=== PATIENT | female | born 1965 | race African-American/Black ===

== ENCOUNTER 2017-05-24 12:39 | Inpatient (IN) | payer MEDICAID, OTHER ==
[~2017-05-24] VITALS: Ht 162.6 cm; Wt 100.0 kg
[2017-05-24 12:58] LABS: GLUCOSE,POINT OF CARE 99 MG/DL (70-110)
[2017-05-24] MEDS ORDERED: SODIUM CHLORIDE 0.9% 1,000 ML IV ONE (13:15)
[2017-05-24] MEDS ORDERED: ASPIRIN 325 MG TABLET PO ONE (13:15)
[2017-05-24 13:18] LABS: BASOPHILS # (AUTO) 0.07 K/uL (0.00-0.20); BASOPHILS % (AUTO) 0.6 % (0.0-2.0); EOSINOPHILS # (AUTO) 0.13 K/uL (0.00-0.70); EOSINOPHILS % (AUTO) 0.98 % (1.0-6.0); HEMATOCRIT 38.1 % (36-46); HEMOGLOBIN 12.4 g/dL (12.0-16.0); LYMPHOCYTES % (AUTO) 36.6 % (22.0-44.0); MEAN CORPUSCULAR HEMOGLOBIN 30.8 pg (26.0-34.0); MEAN CORPUSCULAR HGB CONC 32.6 G/dL (31.0-37.0); MEAN CORPUSCULAR VOLUME 94 fL (80-100); MONOCYTES # (AUTO) 0.9 K/uL (0.1-1.0); MONOCYTES % (AUTO) 6.5 % (2.0-9.0); NEUTROPHILS # (AUTO) 7.5 K/uL (1.8-7.7); NEUTROPHILS % (AUTO) 55.4 % (40.0-70.0); PLATELET COUNT (AUTO) 242 K/uL (150-450); RED BLOOD CELL COUNT(AUTO) 4.04 MIL/uL (4.00-5.20); RED CELL DISTRIBUTION WIDTH 15.2 % (11.5-14.5); WHITE BLOOD COUNT (AUTO) 13.5 K/uL (4.5-11.0)
[2017-05-24] MEDS ORDERED: TRAZ-144 PO (13:21)
[2017-05-24] MEDS ORDERED: OLAN7.5T2 PO (13:21)
[2017-05-24] MEDS ORDERED: TIMO.5OS OU (13:21)
[2017-05-24] MEDS ORDERED: FAMO20 PO (13:21)
[2017-05-24] MEDS ORDERED: BUDE10.22 IH (13:21)
[2017-05-24] MEDS ORDERED: GLIP5 PO (13:21)
[2017-05-24] MEDS ORDERED: LORA10TA7 PO (13:21)
[2017-05-24] MEDS ORDERED: BRIM15OS OU (13:21)
[2017-05-24] MEDS ORDERED: MONT10TA21 PO (13:21)
[2017-05-24] MEDS ORDERED: DICL75TA5 PO (13:21)
[2017-05-24] MEDS ORDERED: ATOR20TA86 PO (13:21)
[2017-05-24] MEDS ORDERED: BUPR75 PO (13:21)
[2017-05-24] MEDS ORDERED: ATEN50TA PO (13:21)
[2017-05-24] MEDS ORDERED: ALBU8HFA4 IH (13:21)
[2017-05-24] MEDS ORDERED: LISI-662 PO (13:21)
[2017-05-24] MEDS ORDERED: BUPR1FIL SL (13:21)
[2017-05-24] MEDS ORDERED: FLUT44HFA IH (13:21)
[2017-05-24 13:28] LABS: ANION GAP 12 mmol/L (8-16); CALCIUM, TOTAL 9.1 mg/dL (8.8-10.5); CARBON DIOXIDE 27 mmol/L (22-29); CHLORIDE 98 mmol/L (98-107); CREATININE 6.88 mg/dL (0.60-1.30); GLOMERULAR FILTR. RATE CALC 8 mL/min (>60); POTASSIUM 4.2 mmol/L (3.5-5.1); SODIUM SERUM 137 mmol/L (136-145); UREA NITROGEN, BLOOD 24 mg/dL (7-18)
[2017-05-24 13:30] LABS: PROTHROMBIN TIME 10.8 SEC (9.4-11.6)
[2017-05-24 13:44] LABS: B-TYPE NATRIURETIC PEPTIDE < 5 pg/mL (0-100)
[2017-05-24 13:53] LABS: ALANINE AMINOTRANSFERASE 45 U/L (12-78); ALBUMIN 3.7 g/dL (3.4-5.0); ASPARTATE AMINOTRANSFERASE 30 U/L (15-37); BILIRUBIN,TOTAL 0.3 mg/dL (0.1-1.0); CREATINE KINASE MB 0.8 ng/mL (0-5); CREATINE KINASE, TOTAL 327 U/L (26-192); TOTAL PROTEIN, SERUM 7.8 g/dL (6.4-8.2)
[2017-05-24] MEDS ORDERED: 0.9% SODIUM CHLORIDE 10 ML SYRINGE IVP PRN (14:30)
[2017-05-24] MEDS ORDERED: ONDANSETRON HCL 4 MG/2 ML VIAL IVP PRN (14:30)
[2017-05-24] MEDS ORDERED: ALBUTEROL SULFATE 2.5 MG/0.5 ML NEB SOLUTION NEB PRN (15:45)
[2017-05-24] MEDS ORDERED: ACETAMINOPHEN 325 MG TABLET PO PRN (15:45)
[2017-05-24] MEDS ORDERED: BISACODYL 10 MG RECTAL RECTAL SUPPOSITORY PR PRN (15:45)
[2017-05-24] MEDS ORDERED: PNEUMOCOCCAL VACCINE POLYVALENT 0.5 ML VIAL [PPSV23] IM ONE (16:00)
[2017-05-24 16:03] VITALS: BP 93/45
[2017-05-24] MEDS ORDERED: INFLUENZA VIRUS VACCINE QVS 2017-18 (3YR+)/PF 60 MCG/0.5 ML SYRINGE IM ONE (16:30)
[2017-05-24] MEDS: SODIUM CHLORIDE 0.9% 1,000 ML IV SCH (17:33)
[2017-05-24] MEDS: ACETAMINOPHEN 325 MG TABLET PO PRN (18:23)
[2017-05-24] MEDS: DOCUSATE SODIUM 100 MG CAPSULE PO SCH (20:32)
[2017-05-24 20:42] VITALS: BP 93/43
[2017-05-24] MEDS ORDERED: HEPARIN SODIUM,PORCINE 5,000 UNITS/ML VIAL SQ SCH (21:00)
[2017-05-24 23:23] LABS: ADD UA MICROSCOPIC YES; APPEARANCE,URINE CLOUDY (CLEAR); GLUCOSE, URINE (UA) NEGATIVE (NEGATIVE); KETONES,URINE NEGATIVE (NEGATIVE); LEUKOCYTE ESTERASE ,URINE NEGATIVE (NEGATIVE); OCCULT BLOOD,URINE SMALL (NEGATIVE); PROTEIN,URINE TRACE (NEGATIVE)
[2017-05-24 23:25] LABS: SQUAMOUS EPITHELIAL CELL,UR Few /LPF (None Seen)
[2017-05-24 23:28] LABS: RBC,URINE 0-2 /HPF (0-2); WBC,URINE 0-2 /HPF (0-5)
[2017-05-25] VITALS (7 sets, daily range): BP systolic 94–116; BP diastolic 41–59
[2017-05-25] MEDS: SODIUM CHLORIDE 0.9% 1,000 ML IV SCH ×2 (06:40→18:45)
[2017-05-25 06:51] LABS: BASOPHILS # (AUTO) 0.07 K/uL (0.00-0.20); BASOPHILS % (AUTO) 0.6 % (0.0-2.0); EOSINOPHILS # (AUTO) 0.14 K/uL (0.00-0.70); HEMOGLOBIN 11.1 g/dL (12.0-16.0); LYMPHOCYTES # (AUTO) 4.1 K/uL (1.0-4.8); LYMPHOCYTES % (AUTO) 34.3 % (22.0-44.0); MEAN CORPUSCULAR HEMOGLOBIN 30.5 pg (26.0-34.0); MEAN CORPUSCULAR HGB CONC 32.5 G/dL (31.0-37.0); MEAN CORPUSCULAR VOLUME 94 fL (80-100); MONOCYTES # (AUTO) 1.1 K/uL (0.1-1.0); MONOCYTES % (AUTO) 9.3 % (2.0-9.0); NEUTROPHILS # (AUTO) 6.5 K/uL (1.8-7.7); NEUTROPHILS % (AUTO) 54.6 % (40.0-70.0); RED BLOOD CELL COUNT(AUTO) 3.63 MIL/uL (4.00-5.20); RED CELL DISTRIBUTION WIDTH 14.7 % (11.5-14.5); WHITE BLOOD COUNT (AUTO) 11.8 K/uL (4.5-11.0)
[2017-05-25 07:14] LABS: BILIRUBIN,TOTAL 0.1 mg/dL (0.1-1.0); CALCIUM, TOTAL 8.2 mg/dL (8.8-10.5); CREATININE 5.42 mg/dL (0.60-1.30); POTASSIUM 4.2 mmol/L (3.5-5.1); TOTAL PROTEIN, SERUM 6.6 g/dL (6.4-8.2)
[2017-05-25 07:24] LABS: PLATELET COUNT (AUTO) 195 K/uL (150-450)
[2017-05-25] MEDS ORDERED: ENOXAPARIN SODIUM 40 MG/0.4 ML PF SYRINGE SQ SCH (09:00)
[2017-05-25] MEDS: DOCUSATE SODIUM 100 MG CAPSULE PO SCH ×2 (09:20→20:10)
[2017-05-25] MEDS: PANTOPRAZOLE SODIUM 40 MG DR TABLET PO SCH (09:20)
[2017-05-25] MEDS ORDERED: INSULIN ASPART 100 UNITS/ML SQ PRN (10:45)
[2017-05-25] MEDS ORDERED: DEXTROSE 50%-WATER 25 GM/50 ML SYRINGE IVP PRN (10:45)
[2017-05-25] MEDS: ACETAMINOPHEN 325 MG TABLET PO PRN (12:50)
[2017-05-25] MEDS: NICOTINE 21 MG/24 HOUR PATCH TD SCH (12:51)
[2017-05-25 19:38] LABS: GLUCOSE,POINT OF CARE 107 MG/DL (70-110)
[2017-05-25 19:38] LABS: GLUCOSE COMMENT 1 Received Meds; GLUCOSE,POINT OF CARE 190 MG/DL (70-110)
[2017-05-26 00:57] LABS: INFLUENZA TYPE B NEGATIVE FOR TYPE B (NEGATIVE)
[2017-05-26 04:45] VITALS: BP 103/72
[2017-05-26 06:07] LABS: BASOPHILS # (AUTO) 0.08 K/uL (0.00-0.20); EOSINOPHILS # (AUTO) 0.09 K/uL (0.00-0.70); EOSINOPHILS % (AUTO) 1.12 % (1.0-6.0); HEMATOCRIT 35.5 % (36-46); HEMOGLOBIN 11.7 g/dL (12.0-16.0); LYMPHOCYTES # (AUTO) 3.1 K/uL (1.0-4.8); LYMPHOCYTES % (AUTO) 37.1 % (22.0-44.0); MEAN CORPUSCULAR HEMOGLOBIN 30.8 pg (26.0-34.0); MEAN CORPUSCULAR VOLUME 93 fL (80-100); MONOCYTES # (AUTO) 0.9 K/uL (0.1-1.0); MONOCYTES % (AUTO) 10.2 % (2.0-9.0); NEUTROPHILS # (AUTO) 4.3 K/uL (1.8-7.7); NEUTROPHILS % (AUTO) 50.6 % (40.0-70.0); PLATELET COUNT (AUTO) 173 K/uL (150-450); RED CELL DISTRIBUTION WIDTH 14.7 % (11.5-14.5); WHITE BLOOD COUNT (AUTO) 8.5 K/uL (4.5-11.0)
[2017-05-26 06:19] LABS: CREATININE 1.6 mg/dL (0.60-1.30); POTASSIUM 4.6 mmol/L (3.5-5.1)
[2017-05-26 07:47] VITALS: BP 96/46
[2017-05-26 08:17] LABS: GLUCOSE,POINT OF CARE 99 MG/DL (70-110)
[2017-05-26 08:17] LABS: GLUCOSE,POINT OF CARE 133 MG/DL (70-110)
[2017-05-26] MEDS: PANTOPRAZOLE SODIUM 40 MG DR TABLET PO SCH (08:19)
[2017-05-26] MEDS: NICOTINE 21 MG/24 HOUR PATCH TD SCH (08:20)
[2017-05-26] MEDS: DOCUSATE SODIUM 100 MG CAPSULE PO SCH (08:20)
[2017-05-26 11:13] VITALS: BP 121/51
[2017-05-26 14:21] LABS: GLUCOSE,POINT OF CARE 124 MG/DL (70-110)
[2017-05-26 16:41] LABS: CREATININE, URINE (mALB) 139.6 mg/dL (Not Estab.)
[2017-05-28 13:07] LABS: MYOGLOBIN URINE <2 ng/mL (0-13)
== END 2017-05-26 13:00 | disposition home or self-care (01) | DRG 469 ==
LOC: EMS 12:42 → 5S 14:48
PROVIDERS: ADMIT Internal Medicine; ATTEND Internal Medicine
PROC: 3E0234Z Introduction of Serum, Toxoid and Vaccine into Muscle, Percutaneous Approach (ICD-10-PCS; principal; 2017-05-25)
DX: N17.9 Acute kidney failure, unspecified (principal); I24.8 Other forms of acute ischemic heart disease; E11.22 Type 2 diabetes mellitus with diabetic chronic kidney disease; I95.9 Hypotension, unspecified; F14.20 Cocaine dependence, uncomplicated; E66.01 Morbid (severe) obesity due to excess calories; J44.9 Chronic obstructive pulmonary disease, unspecified; F17.210 Nicotine dependence, cigarettes, uncomplicated; N18.9 Chronic kidney disease, unspecified; I12.9 Hypertensive chronic kidney disease with stage 1 through stage 4 chronic kidney disease, or unspecified chronic kidney disease; M19.90 Unspecified osteoarthritis, unspecified site; M06.9 Rheumatoid arthritis, unspecified; F19.10 Other psychoactive substance abuse, uncomplicated; F99 Mental disorder, not otherwise specified; R29.6 Repeated falls; T39.395A Adverse effect of other nonsteroidal anti-inflammatory drugs [NSAID], initial encounter; Z68.37 Body mass index [BMI] 37.0-37.9, adult; Z86.718 Personal history of other venous thrombosis and embolism; Z87.81 Personal history of (healed) traumatic fracture; Z91.81 History of falling; Z71.51 Drug abuse counseling and surveillance of drug abuser; Z82.49 Family history of ischemic heart disease and other diseases of the circulatory system; Z83.3 Family history of diabetes mellitus; Z23 Encounter for immunization; Z84.1 Family history of disorders of kidney and ureter; X58.XXXA Exposure to other specified factors, initial encounter; Y93.89 Activity, other specified; Y92.89 Other specified places as the place of occurrence of the external cause; Y99.8 Other external cause status
CPT/HCPCS: 76770; 80307; 82043; 82570; 82962; 83874; 84156; 84300; 87086; 87804; 90471; 93005; 93306; 99285; J1650; J7030

== ENCOUNTER 2022-12-04 06:24 | Day surgery (SDC) | payer OTHER ==
[~2022-12-04] VITALS: Ht 162.6 cm; Wt 60.9 kg
[~2022-12-04 06:24] MED LIST: HYDR200T4 PO
[2022-12-04] MEDS ORDERED: LIDOCAINE 4% 50 ML SOLUTION TP ONE (06:25)
[2022-12-04] MEDS ORDERED: LIDOCAINE 2% 11 ML JELLY TP ONE (06:25)
[2022-12-04] MEDS ORDERED: ALBUTEROL SULFATE 2.5 MG/0.5 ML NEB SOLUTION NEB ONE (06:25)
[2022-12-04] MEDS ORDERED: BENZOCAINE 20% 50 MCG/SPRAY 57 GM TP ONE (06:25)
[2022-12-04] MEDS ORDERED: SODIUM CHLORIDE 0.9% 1,000 ML IV ONE (07:00)
[2022-12-04] MEDS ORDERED: SODIUM CHLORIDE 0.9% 1,000 ML ONE (07:41)
[2022-12-04] MEDS ORDERED: MIDAZOLAM HCL 2 MG/2 ML VIAL ONE (08:08)
[2022-12-04] MEDS ORDERED: FentaNYL CITRATE PF 100 MCG/2 ML VIAL ONE (08:08)
[2022-12-04 08:26] LABS: GLUCOMETER DEV NAME(LOC) SDS.; GLUCOSE,POINT OF CARE 90 MG/DL (70-110)
[2022-12-04] MEDS ORDERED: LATA2.5D14 OU (08:40)
[2022-12-04] MEDS ORDERED: FERR325T23 PO (08:40)
[2022-12-04] MEDS ORDERED: CHOL500013 PO (08:40)
[2022-12-04] MEDS ORDERED: MONT-35 PO (08:40)
[2022-12-04] MEDS ORDERED: OLAN10TA74 PO (08:40)
[2022-12-04] MEDS ORDERED: HYDR200T38 PO (08:40)
[2022-12-04] MEDS ORDERED: BACL10TA PO (08:40)
[2022-12-04] MEDS ORDERED: GABA-1181 PO (08:40)
[2022-12-04] MEDS ORDERED: METF-1211 PO (08:40)
[2022-12-04] MEDS ORDERED: SERT-158 PO (08:40)
[2022-12-04] MEDS ORDERED: FLUT16SP NASAL (08:40)
[2022-12-04] MEDS ORDERED: FAMO20 PO (08:40)
[2022-12-04] MEDS ORDERED: TRAZ-257 PO (08:40)
[2022-12-04] MEDS ORDERED: ATOR20TA65 PO (08:40)
[2022-12-04] MEDS ORDERED: DIPH25TA19 PO (08:40)
[2022-12-04] MEDS ORDERED: PREG75 PO (08:40)
[2022-12-04] MEDS ORDERED: MethylPREDNISolone SOD SUCC 125 MG/2 ML VIAL ONE (09:46)
[2022-12-04] MEDS ORDERED: MethylPREDNISolone SOD SUCC 125 MG/2 ML VIAL IVP ONE (10:00)
[2022-12-04] MEDS ORDERED: PROMETHAZINE HCL/D-METHORPHAN HB 5 ML ORAL.SYG PO ONE (10:00)
== END 2022-12-04 12:00 | disposition home or self-care (01) ==
LOC: SURGERY 06:24
PROVIDERS: ATTEND Internal Medicine Critical Care Medicine
DX: J38.4 Edema of larynx (principal); B37.0 Candidal stomatitis; F20.9 Schizophrenia, unspecified; G47.30 Sleep apnea, unspecified; F32.A Depression, unspecified; Z79.899 Other long term (current) drug therapy; F17.210 Nicotine dependence, cigarettes, uncomplicated; Z72.89 Other problems related to lifestyle; Z98.890 Other specified postprocedural states; E78.00 Pure hypercholesterolemia, unspecified
CPT/HCPCS: 31623; 88112; 82962; 87206; 87101; 87220; 87070; 31624; 94640; 71045; 71250; 87015; J3010; J2250; J2930; Q9967; J7030; J7613; Z7610